=== PATIENT | female | born 1950 | race Caucasian/White ===

== ENCOUNTER 2016-10-10 16:22 | Inpatient (IN) ==
[2016-10-10] MEDS ORDERED: ZOFRAN IV PRN (17:18)
[2016-10-10] MEDS ORDERED: ULTRAM PO PRN (17:19)
[2016-10-10] MEDS ORDERED: DUONEB (A & A) ONE (17:34)
[2016-10-10] MEDS ORDERED: NS 1,000 ML IV SCH (17:51)
[2016-10-10 17:52] LABS: ALLEN TEST YES; BE 4.8 mmoll (-3.0-3.0); BLOOD TYPE ARTERIAL; DRAW SITE R RADIAL; METHB 0.2 % (0.0-1.5); O2(CT) 15.1 mL/dL (15.0-23.0); PO2(98.6) 67 mmHg (60-100); SAMPLE BLOOD; SAO2 93.8 % (95.0-100.0); THB 11.7 g/dL (11.5-17.4); pH(98.6) 7.31 (7.35-7.45)
[2016-10-10 17:55] LABS: MODALITY CANNULA; PCO2(98.6) 65 mmHg (35-45)
[2016-10-10 18:09] LABS: MANUAL DIFF NEEDED? NO
[2016-10-10 18:09] LABS: URINE CULTURE NEEDED? NO; URINE MICRO REVIEW NEEDED? NO; URINE SOURCE CLEAN CATCH
[2016-10-10 18:13] LABS: BILIRUBIN URINE NEGATIVE (NEGATIVE); BLOOD URINE NEGATIVE (NEGATIVE); COLOR STRAW; GLUCOSE URINE NEGATIVE (NEGATIVE); LEUKOCYTES URINE NEGATIVE (NEGATIVE); NITRITE URINE NEGATIVE (NEGATIVE); PROTEIN URINE NEGATIVE (NEGATIVE); SP GRAVITY URINE 1.007; TURBIDITY URINE CLEAR (CLEAR); UR EPITHELIAL CELLS <10 /HPF (<10); URINE BACTERIA NEGATIVE /HPF; URINE RBC <10 /HPF (<10); URINE WBC <10 /HPF (<10); UROBILINOGEN URINE NORMAL (NORMAL)
[2016-10-10 18:22] LABS: BASO% 0.2 % (0.0-0.8); EOS# 0.08 X1000 (0.0-0.7); EOS% 0.7 % (0.0-10.0); HEMATOCRIT 38.2 % (37.0-47.0); HEMOGLOBIN 12.5 g/dL (12.0-16.0); IMM GRAN# 0.03 X1000 (0.0-0.04); IMM GRAN% 0.3 % (0.0-0.5); LYMPH# 3.93 X1000 (1.2-3.4); LYMPH% 34.8 % (20.5-51.1); MCH 32.4 PG (27-31); MCHC 32.7 g/dL (33-37); MONO# 0.78 X1000 (0.11-0.59); MONO% 6.9 % (1.7-9.3); MPV 9.5 FL (7.4-10.4); NEUT% 57.1 % (42.2-75.2); PLT 222 X1000 (130-400); RBC 3.86 XMIL (4.2-5.4)
[2016-10-10 18:25] LABS: AGAP 10; ALBUMIN 3.5 g/dL (3.5-5.0); ALKALINE PHOSPHATASE 72 U/L (32-104); AMYLASE 41 U/L (20-200); BUN 9 mg/dL (8-22); CALCIUM 8.8 mg/dL (8.8-10.2); CHLORIDE 100 mmol/L (98-107); COSMO 278; GOT 19 U/L (10-30); GPT 6 U/L (10-36); LIPASE 19 U/L (13-60); POTASSIUM 5.4 mmol/L (3.5-5.1); SODIUM 140 mmol/L (136-145); TCO2 30 mmol/L (25-35); TOTAL BILIRUBIN 0.18 mg/dL (0.20-1.00); TOTAL PROTEIN 7.3 g/dL (6.3-8.3)
[2016-10-10] MEDS ORDERED: LASIX IV ONE (18:43)
[2016-10-10] MEDS ORDERED: LEVAQUIN 750 MG/D5W 750 MG/150 ML IVPB IV SCH (18:45)
[2016-10-10] MEDS ORDERED: NS 500 ML ONE (19:23)
[2016-10-10] MEDS ORDERED: NS 500 ML IV ONE (19:33)
[2016-10-10] MEDS: ALBUTEROL NEB INH SCH ×2 (19:50→22:39)
[2016-10-10] MEDS: MORPHINE IV PRN (20:10)
[2016-10-10] MEDS ORDERED: DEPAKOTE PO SCH (21:00)
[2016-10-10] MEDS ORDERED: ZANAFLEX PO SCH (22:21)
[2016-10-10] MEDS ORDERED: VANCOMYCIN IV PER PHARMACY MISC SCH (22:30)
[2016-10-10] MEDS ORDERED: NEO-SYNEPHRINE 50 MG in NS 250 ML IV SCH (22:30)
[2016-10-10] MEDS ORDERED: LYRICA PO SCH (22:30)
[2016-10-10] MEDS: LIBRAX PO SCH (22:58)
[2016-10-10] MEDS: DESYREL PO SCH (22:59)
[2016-10-11] MEDS ORDERED: VANCOMYCIN 1.7 GM in NS 250 ML IV ONE ×2
[2016-10-11] MEDS: TYLENOL PO PRN (00:35)
[2016-10-11] MEDS: ALBUTEROL NEB INH SCH ×6 (03:40→23:17)
--- NOTE | 2016-10-11 05:31 | EKG Report ---
Test Performed on : 10/10/2016 6:44:46 PM Test Reason : CP/Re-Ordered Blood Pressure : / mmHG Vent. Rate : 097 BPM Atrial Rate : 097 BPM P-R Int : 130 ms QRS Dur : 070 ms QT Int : 358 ms P-R-T Axes : 079 025 054 degrees QTc Int : 454 ms Normal sinus rhythm. Possible Left atrial enlargement Borderline ECG When compared with ECG of 20-JUL-2015 10:50, No significant change was found Unconfirmed Result
[2016-10-11 05:43] LABS: MANUAL DIFF NEEDED? NO
[2016-10-11 06:07] LABS: BASO% 0.1 % (0.0-0.8); EOS# 0.09 X1000 (0.0-0.7); HEMATOCRIT 32.1 % (37.0-47.0); HEMOGLOBIN 10.5 g/dL (12.0-16.0); IMM GRAN# 0.02 X1000 (0.0-0.04); IMM GRAN% 0.2 % (0.0-0.5); LYMPH# 2.85 X1000 (1.2-3.4); LYMPH% 31.3 % (20.5-51.1); MCH 32.5 PG (27-31); MCHC 32.7 g/dL (33-37); MCV 99.4 FL (81-99); MONO# 0.72 X1000 (0.11-0.59); MONO% 7.9 % (1.7-9.3); NEUT% 59.5 % (42.2-75.2); PLT 217 X1000 (130-400); RBC 3.23 XMIL (4.2-5.4)
[2016-10-11 06:18] LABS: AGAP 8; BUN 8 mg/dL (8-22); CALCIUM 8.5 mg/dL (8.8-10.2); CHLORIDE 103 mmol/L (98-107); COSMO 276; SODIUM 139 mmol/L (136-145); TCO2 28 mmol/L (25-35)
[2016-10-11 07:31] LABS: ALLEN TEST YES; BE 3.2 mmoll (-3.0-3.0); BLOOD TYPE ARTERIAL; DRAW SITE R RADIAL; O2(CT) 15.2 mL/dL (15.0-23.0); PO2(98.6) 74 mmHg (60-100); SAMPLE BLOOD; SAO2 95.5 % (95.0-100.0); THB 11.4 g/dL (11.5-17.4)
--- NOTE | 2016-10-11 07:32 | Diag Imaging Result Doc PS360 ---
CHEST-PORTABLE - 10/11/2016 INDICATION: hypoxia TECHNIQUE: COMPARISON: 11/16/2015 FINDINGS: The lungs are normally expanded and clear. Heart size and mediastinal contours are normal. No pneumothorax or pleural effusion. IMPRESSION: Negative exam. Electronically signed by Madan Lassiter 10/11/2016 7:29 AM
[2016-10-11 07:34] LABS: PCO2(98.6) 63 mmHg (35-45)
[2016-10-11] MEDS: SPIRIVA INH SCH (08:20)
[2016-10-11] MEDS: ZOLOFT PO SCH (08:23)
[2016-10-11] MEDS ORDERED: ZANAFLEX PO SCH (09:00)
--- NOTE | 2016-10-11 10:06 | HISTORY AND PHYSICAL ---
CHIEF COMPLAINT: Cough, fever, and vomiting. HISTORY OF PRESENT ILLNESS: The patient is a 66-year-old white female, who suffers from severe COPD and is on home oxygen therapy at 2 L/minute. She comes in with a 2-1/2 day history of low O2 saturations at home and some fever running around 101.3 over the last 2-3 days. She has had 2 nose bleeds and a rupture of blood vessel in her left sclera area. She has vomited 1 time last evening,. She has [facility] pain and also by Dr. Knapp, Neurologist, for some tremors. MEDICATIONS: Prior to admission are Lyrica 150 mg p.o. at bedtime, Librax 1 p.o. at bedtime, Depakote 50 mg p.o. b.i.d., Zoloft 100 mg p.o. daily, Spiriva 1 inhalation daily, Zanaflex 4 mg p.o. at bedtime, trazodone 50 mg 1-3 p.o. at bedtime. ALLERGIES: To tape, latex, rubber, codeine, and Avelox. The Avelox caused itching back in 2003. PAST MEDICAL HISTORY: 1. Obstructive sleep apnea diagnosed in 2007, followed by Dr. Reynolds. 2. Chronic obstructive pulmonary disease, followed by Dr. Reynolds. 3. Gastroparesis. 4. Diastolic dysfunction. 5. Glaucoma. 6. Hypothyroidism, diagnosed September,. 7. Genital HSV. 8. Tremor, possibly benign essential tremor versus tremor related to inhalers. PAST SURGICAL HISTORY: 1. Left foot surgery 04/19/1999. 2. Cholecystectomy. 3. Total abdominal hysterectomy. 4. Bilateral tubal ligation. 5. Left breast biopsy, January,, which was benign. 6. Right knee arthroscopy. 7. Right cataract removal in 2004. 8. Left shoulder surgery in 2004. 9. Ventral hernia repair in December,. 10. Bilateral salpingo-oophorectomy in 2007. 11. Repeat right knee arthroscopy. IMMUNIZATIONS: Pneumovax 23 given in 2007, Prevnar 13 given December,. Last influenza vaccination January,. FAMILY HISTORY: Notable for aunt with hypertension, grandmother with diabetes mellitus, mother and niece with breast cancer, and aunt with stroke. No MIs in the family. Two aunts with brain cancer. SOCIAL HISTORY: The patient lives in [place]. She is and has 1 son. Smokes 3/4 of pack a cigarettes per day and has for about 45 years. Continues to smoke some in her home now. Denies alcohol usage. She is a retired maid. REVIEW OF SYSTEMS: Negative, except as above. Has had some lower extremity edema recently, some eczema, and does have a history of mild cardiomyopathy. PHYSICAL EXAMINATION: VITAL SIGNS: The patient is seen in the office. Weight 136, blood pressure 128/74, pulse 124. O2 saturation 80% on room air. Temperature 99.3 degrees. GENERAL: Frail, elderly appearing white female, appears much older than stated age. She is walking lethargically and looking down at the floor. Appears quite ill. SKIN: There is mild of discoloration and darkness to the lower extremities from about a quarter down from the knees to the ankles. HEENT: PERRL. EOMI. Sclerae with a subconjunctival hemorrhage left medial sclerae area, mild to moderate. TMs clear. Oropharynx with slightly dry mucous membranes. Tongue in the midline. Mild redness. Edentulous. NECK: No LA, TMG, JVD or bruits. CARDIOVASCULAR: Tachycardia, regular rhythm. No distinct murmur. LUNGS: Coarse breath sounds throughout with occasional wheezes bilaterally. Decreased breath sounds at the bases noted. BACK: No costovertebral angle tenderness. ABDOMEN: Soft, nontender, nondistended. No mass or organomegaly. BREASTS/PELVIC/RECTAL: Deferred. EXTREMITIES: Trace lower extremity edema. NEUROLOGIC: Cranial nerves 2 through 12 are intact. She moves all extremities well. DTRs are equal. She does appear somewhat lethargic, but does answer questions appropriately. ASSESSMENT: 1. Hypoxia. 2. Cough. 3. Fever. 4. Chronic obstructive pulmonary disease, severe, on home oxygen. 5. Obstructive sleep apnea. 6. History of mild cardiomyopathy and diastolic dysfunction. 7. History of gastroparesis. 8. Glaucoma. 9. Hypothyroidism with possible noncompliance with medications. 10. Genital herpes simple virus. 11. Persistent tobacco abuse. 12. Vomiting. 13. Epistaxis. 14. Subconjunctival hemorrhage, left. PLAN: At this time, we will place the patient immediately over the ER and give albuterol nebulizer treatments. Place her on supplemental O2. Check chest x-ray, blood cultures x2, CMP, CBC. She is scheduled for an echocardiogram tomorrow and we will obtain that in the hospital. We will place her on clear liquids as tolerated. Insert a Fu catheter. Monitor I Os. Place her on Zofran for nausea. Continue her Zoloft, Spiriva, trazodone. Will add Librax. We will give albuterol nebulizer treatments. Consider IV antibiotics, pending lab. Check urinalysis as well. cc: Michael Calloway MD
[2016-10-11 15:03] LABS: MODALITY VENTIMASK
--- NOTE | 2016-10-11 15:50 | ECHO REPORT ---
ORDER DATE: 10/11/2016 MEASUREMENTS: Left ventricular end-diastolic diameter 3.9. End systolic diameter 2.5. Septal thickness 1.0. Left atrium 2.8. Aortic root 3.1. SUMMARY: 1. Technically difficult study due to limited acoustic window quality. Intravenous echo contrast agent Definity was utilized to enhance endocardial definition for purposes of assessment of left ventricular systolic function and regional wall motion analysis. 2. Aortic mitral and tricuspid valves are without gross structural abnormality. There is trace tricuspid regurgitation. Pulmonic valve not well demonstrated. The aortic root is normal size. 3. Normal left ventricular dimensions suggested. Estimated left ejection fraction appears to be at least 60%. No regional wall motion abnormalities are evident. Doppler suggests normal left ventricular diastolic function. Left atrium, right atrium, and right ventricle are normal size with normal right ventricular systolic function. 4. No pericardial effusion. 5. Appearance of inferior vena cava suggests normal central venous pressure. CONCLUSIONS: 1. Technically difficult study. 2. No significant valvular abnormality. 3. Normal left ventricular ejection fraction without wall motion abnormality evident. cc: MD Michael Gomez MD
--- NOTE | 2016-10-11 17:29 | PROGRESS NOTE ---
DATE: 10/11/2016 SUBJECTIVE: Patient is sitting up. She is breathing some better. Complains of some tremulousness with the albuterol. OBJECTIVE: Vital signs: Afebrile. Pulse 117. Respirations 21-24. Blood pressure 101/60 off of the Twin-Synephrine. O2 saturation on 4 L per nasal cannula 95%. CARDIOVASCULAR: Tachycardia, regular rhythm. Lungs: Coarse breath sounds with mild expiratory wheezes bilaterally. Distant breath sounds also noted. Abdomen: Nontender. Extremities: No calf tenderness, cords or edema. Neurologic: Nonfocal. Patient is alert. She is talkative. Answers questions appropriately. No focal deficits identified. LABORATORY: White count 9.11, hemoglobin 10.5, platelets 217,000. ABG on 40% via Ventimask reveals pH 7.30, pCO2 63, PO2 74, HC03 27, O2 saturation 95%. Sodium 139, potassium 4, chloride 103, CO2 28, BUN 8, creatinine 0.6, calcium 8.5, proBNP yesterday 1767. Plasma lactate this morning 0.6. Urinalysis negative. DIAGNOSTICS: Chest x-ray negative examination. EKG: Normal sinus rhythm. Left atrial enlargement. Otherwise, negative. Unchanged from previous EKGs. Echocardiogram reveals technically difficult study. Trace TR. EF 60%. No wall motion abnormalities. Normal LV diastolic function. No pericardial effusion. ASSESSMENT: 1. Chronic obstructive pulmonary disease exacerbation with hypercapnia and hypoxia. 2. Bronchitis with fever. 3. Obstructive sleep apnea. 4. History of mild cardiomyopathy and diastolic dysfunction, now resolved. 5. Remote gastroparesis. 6. Glaucoma. 7. History of hypothyroidism with possible noncompliance. 8. Genital herpes simplex virus. 9. Persistent tobacco abuse. 10. Epistaxis. 11. Left subconjunctival hemorrhage, improving. PLAN: Continue albuterol via nebulizers. Continue O2 via nasal cannula or Ventimask during the day and will give BiPAP at night. Continue IV antibiotics in the form of Levaquin and vancomycin, which was started last evening. Monitor input and output. Continue Spiriva, trazodone, Zoloft, Librax, Lyrica and will add Breo. Counseled her over several minutes in regard to smoking cessation, which is imperative. We will discontinue Fu catheter. She is off the Twin- Synephrine now and doing well and we will transfer out to a telemetry bed. Continue BiPAP at night which is very important. cc: Michael Calloway MD
[2016-10-11] MEDS: LEVAQUIN 750 MG/D5W 750 MG/150 ML IVPB IV SCH (17:37)
[2016-10-11] MEDS ORDERED: VANCOMYCIN 1.25 GM in NS 250 ML IV SCH (18:00)
[2016-10-11] MEDS: LIBRAX PO SCH (22:02)
[2016-10-11] MEDS: DESYREL PO SCH (22:02)
[2016-10-11] MEDS: MORPHINE IV PRN (22:08)
[2016-10-12] MEDS: ALBUTEROL NEB INH SCH ×6 (03:38→23:06)
[2016-10-12 05:12] LABS: BE 5.5 mmoll (-3.0-3.0); BLOOD TYPE ARTERIAL; DRAW SITE L BRACHIAL; O2(CT) 13.6 mL/dL (15.0-23.0); PO2(98.6) 57 mmHg (60-100); SAMPLE BLOOD; SAO2 93.4 % (95.0-100.0); THB 10.6 g/dL (11.5-17.4)
[2016-10-12 05:13] LABS: MODALITY CANNULA; PCO2(98.6) 68 mmHg (35-45)
[2016-10-12 07:42] LABS: MANUAL DIFF NEEDED? NO
[2016-10-12 07:47] LABS: BASO% 0.2 % (0.0-0.8); EOS# 0.05 X1000 (0.0-0.7); EOS% 0.8 % (0.0-10.0); HEMATOCRIT 31.1 % (37.0-47.0); LYMPH# 1.72 X1000 (1.2-3.4); LYMPH% 28.4 % (20.5-51.1); MCH 32.2 PG (27-31); MCHC 32.2 g/dL (33-37); MONO# 0.55 X1000 (0.11-0.59); MONO% 9.1 % (1.7-9.3); MPV 9.1 FL (7.4-10.4); NEUT% 61.5 % (42.2-75.2); PLT 198 X1000 (130-400); RBC 3.11 XMIL (4.2-5.4)
[2016-10-12 08:11] LABS: AGAP 8; BUN 7 mg/dL (8-22); CALCIUM 8.6 mg/dL (8.8-10.2); CHLORIDE 101 mmol/L (98-107); COSMO 278; POTASSIUM 4.1 mmol/L (3.5-5.1); SODIUM 140 mmol/L (136-145); TCO2 31 mmol/L (25-35)
[2016-10-12] MEDS: SPIRIVA INH SCH (08:41)
[2016-10-12] MEDS: SOLU-MEDROL IV SCH ×2 (08:54→17:04)
[2016-10-12] MEDS: ZOLOFT PO SCH (08:54)
--- NOTE | 2016-10-12 09:18 | PROGRESS NOTE ---
DATE: 10/12/2016 SUBJECTIVE: Patient did not wear her BiPAP last night. She said she put it on for 45 minutes but needed some ice, so she started eating ice and never put the BiPAP back on. OBJECTIVE: Vital Signs: Afebrile, pulse 107 respirations 20, blood pressure 105/40, O2 saturation on 4 L 91% to 95%. CV: Tachycardia, regular rhythm. Lungs: Mild expiratory wheezes bilaterally. Distant breath sounds. Abdomen: Nontender. Extremities: No calf tenderness or cord but she complains of pain along the right leg and has maybe some decreased movement in the right leg. No swelling identified. LABS: Sodium 140, potassium 4.1, chloride 101, CO2 31, BUN 7, creatinine 0.5, calcium 8.6. White count 6.06, hemoglobin 10, platelets 198,000. ABG on 36% reveals pH 7.300, pCO2 68, PO2 57, HCO3 29, O2 saturation 93.4. Blood cultures x2 remain negative. ASSESSMENT: 1. Chronic obstructive pulmonary disease exacerbation with cross gases. 2. Bronchitis. 3. Noncompliance. 4. Obstructive sleep apnea. 5. Gastroparesis. 6. Glaucoma. 7. History of hypothyroidism. 8. Genital herpes simplex virus, inactive. 9. Persistent tobacco abuse. 10. Epistaxis, resolved. 11. Left subconjunctival hemorrhage, much improved. PLAN: At this time, strongly encouraged patient to wear the BiPAP at night and leave on the nasal cannula O2 during the day. Encouraged her and counseled her in regard to smoking cessation. Continue Levaquin, vancomycin, albuterol nebs, Spiriva, Breo and will add IV steroids to try to improve her cross gases. We discussed that BiPAP will help her markedly in this endeavor. Fu catheter is out. She is off the Twin-Synephrine. She is on telemetry bed. We will continue other medicines to include her trazodone, Zoloft, Librax, Lyrica and continue supportive care. cc: Michael Calloway MD
[2016-10-12] MEDS: BREO ELLIPTA 100/25 MCG INH INH SCH (11:26)
[2016-10-12] MEDS: LEVAQUIN 750 MG/D5W 750 MG/150 ML IVPB IV SCH (17:04)
[2016-10-12] MEDS: LIBRAX PO SCH (22:17)
[2016-10-12] MEDS: DESYREL PO SCH (22:17)
[2016-10-12] MEDS: MORPHINE IV PRN (22:30)
[2016-10-13] MEDS: SOLU-MEDROL IV SCH ×3 (02:28→17:13)
[2016-10-13] MEDS: ALBUTEROL NEB INH SCH ×6 (04:30→22:53)
[2016-10-13 06:46] LABS: HEMATOCRIT 32.8 % (37.0-47.0); LYMPH# 0.56 X1000 (1.2-3.4); LYMPH% 11.9 % (20.5-51.1); MANUAL DIFF NEEDED? NO; MCH 32.8 PG (27-31); MCHC 33.5 g/dL (33-37); MCV 97.9 FL (81-99); MONO# 0.03 X1000 (0.11-0.59); MONO% 0.6 % (1.7-9.3); MPV 9.5 FL (7.4-10.4); NEUT% 87.5 % (42.2-75.2); PLT 224 X1000 (130-400); RBC 3.35 XMIL (4.2-5.4)
[2016-10-13 07:14] LABS: AGAP 8; BUN 10 mg/dL (8-22); CALCIUM 9.1 mg/dL (8.8-10.2); CHLORIDE 98 mmol/L (98-107); COSMO 276; POTASSIUM 3.6 mmol/L (3.5-5.1); SODIUM 136 mmol/L (136-145); TCO2 30 mmol/L (25-35)
[2016-10-13 07:15] LABS: FREE T4 1.46 ng/dL (0.93-1.70)
[2016-10-13] MEDS: SPIRIVA INH SCH (09:10)
[2016-10-13] MEDS: BREO ELLIPTA 100/25 MCG INH INH SCH (09:10)
[2016-10-13] MEDS: ZOLOFT PO SCH (09:52)
[2016-10-13] MEDS: SODIUM CHLORIDE 0.9% INJ SCH (13:38)
[2016-10-13] MEDS: PEPCID IV SCH ×2 (13:38→23:06)
--- NOTE | 2016-10-13 14:13 | PROGRESS NOTE ---
DATE: 10/13/2016 SUBJECTIVE: Ms. Hanson is a 66-year-old white female, admitted to the hospital with COPD exacerbation with respiratory failure, ventilatory failure with hypercarbia and hypoxemia. Patient is anxious to go home. Patient was admitted on 10/11/2016. REVIEW OF SYSTEMS: HEENT: No headache. No vision problem. Cardiopulmonary: No chest pain. Basically, coughing, shortness of breath, and wheezing. Gastrointestinal: No nausea, vomiting, or abdominal pain. Cardiovascular: No swelling of feet. Neurologic: No focal symptoms or weakness. PAST MEDICAL HISTORY, PAST SURGICAL HISTORY, MEDICINES: Reviewed as per HPI. OBJECTIVE: Temperature is 98.2 degrees, pulse is 112, blood pressure is 101/36, on 4L nasal cannula 94%. Patient is not in respiratory distress.HEENT: Atraumatic, normocephalic. Pupils equal, react to light. TMs are normal. Neck: Supple. No lymphadenopathy. Chest: Bilateral wheezing. Heart: Sounds are regular. Abdomen: Belly is soft, nontender. Good bowel sounds. No masses palpable. Cardiovascular: No peripheral edema or cyanosis. Neurologic: No obvious neurological deficits. INVESTIGATIONS: CBC: White cell count 4.7, hematocrit 32, platelets 224,000. SMA 7: Sodium 136, potassium 3.6, chloride 98, BUN 10, creatinine 0.6, glucose 185. Free T4 is normal. ABG showed pH is 7.30, pCO2 is 68, PO2 is 57. Chest x-ray on 10/11/2016: Stable chest. EKG: Normal sinus. Nothing acute for ischemia. ASSESSMENT AND PLAN: 1. A 67-year-old white female, admitted to the hospital with acute chronic obstructive pulmonary disease exacerbation with hypercarbia and sleep apnea. Continue on BiPAP machine. Continue on Breo, Levaquin, steroids. 2. Hypothyroidism, on Synthroid. 3. History of tobacco abuse. Nicotine cessation program. 4. Chronic insomnia, on trazodone. 5. Depression, on Zoloft and Depakote. Needs gastrointestinal prophylaxis with Pepcid and deep vein thrombosis prophylaxis with Lovenox. Repeat ABGs in the morning and we will follow up LEVEL OF DOCUMENTATION: Thirty-five minutes. cc: MD Michael Andersen MD
[2016-10-13] MEDS: LEVAQUIN 750 MG/D5W 750 MG/150 ML IVPB IV SCH (17:13)
[2016-10-13] MEDS: TYLENOL PO PRN (17:17)
--- NOTE | 2016-10-13 21:21 | Extremity Venous Study ---
PROCEDURE NAME: Venous U/S Right Leg - 10/12/2016 REFERRING PHYSICIAN: Dr. Calloway. INTERPRETING PHYSICIAN: Dr. George. WIRE STITCHER: Delilah. The patient has right leg pain, has hypoxia. The right lower extremity is imaged. The common femoral, superficial femoral, deep femoral, popliteal, posterior tibial, peroneal, greater saphenous are imaged. The left common femoral vein is imaged for comparison purposes. Doppler is used to evaluate the veins for spontaneity, phasicity, respiratory excursion, distal augmentation. All veins are compressible. No intraluminal clot is seen. INTERPRETATION: No evidence of deep venous thrombosis in the right lower extremity the veins identified. cc: MD Michael Cintron MD
[2016-10-13] MEDS: LIBRAX PO SCH (23:04)
[2016-10-13] MEDS: DESYREL PO SCH (23:04)
[2016-10-14] MEDS: ALBUTEROL NEB INH SCH ×6 (04:18→23:00)
[2016-10-14 05:23] LABS: BE 7.7 mmoll (-3.0-3.0); BLOOD TYPE ARTERIAL; METHB 0.6 % (0.0-1.5); O2(CT) 14.1 mL/dL (15.0-23.0); PO2(98.6) 68 mmHg (60-100); SAMPLE BLOOD; SAO2 94.3 % (95.0-100.0); THB 10.7 g/dL (11.5-17.4); pH(98.6) 7.38 (7.35-7.45)
[2016-10-14 05:25] LABS: MODALITY BI PAP
[2016-10-14 05:26] LABS: DRAW SITE R BRACHIAL; PCO2(98.6) 58 mmHg (35-45)
[2016-10-14] MEDS: SPIRIVA INH SCH (07:52)
[2016-10-14] MEDS: BREO ELLIPTA 100/25 MCG INH INH SCH (07:52)
[2016-10-14] MEDS: SOLU-MEDROL IV SCH ×4 (10:17→23:31)
[2016-10-14] MEDS: LOVENOX SUBQ SCH (10:18)
[2016-10-14] MEDS: ZOLOFT PO SCH (10:18)
[2016-10-14] MEDS: PEPCID IV SCH ×3 (10:29→23:30)
[2016-10-14] MEDS: SODIUM CHLORIDE 0.9% INJ SCH ×2 (10:29→23:30)
--- NOTE | 2016-10-14 12:33 | PROGRESS NOTE ---
DATE: 10/14/2016 SUBJECTIVE: Patient wants to go home and appears to be stable. Patient was using a BiPAP machine. REVIEW OF SYSTEMS: None reported. OBJECTIVE: Vital signs: She is afebrile. Temperature is 98 degrees, pulse is 93, respirations 17, blood pressure is 124/45. Not in respiratory distress. I's and O's: Even. HEENT: Within normal limits. Neck: Supple. No lymphadenopathy. No goiter. Chest: Bilateral air entry. No rales. No wheezing. Heart: Sounds are regular. Abdomen: Belly is soft, nontender. Good bowel sounds. No masses palpable. No peripheral edema, cyanosis. No obvious neurological deficits. INVESTIGATIONS: Venous Dopplers were negative. ABG, pH is 7.38, pCO2 58, PO2 68 on BiPAP. ASSESSMENT AND PLAN: 1. Acute respiratory failure with chronic obstructive pulmonary disease. Using BiPAP machine. Gases are better. Continue on Breo, Levaquin, IV steroids. 2. Hypothyroidism. On Synthroid. Normal thyroid function tests. 3. History of tobacco abuse. Abstain from smoking. The patient is doing very well. Continue present medical therapy. LEVEL OF DOCUMENTATION: 25 minutes. cc: MD Michael Andersen MD
[2016-10-14] MEDS: LEVAQUIN 750 MG/D5W 750 MG/150 ML IVPB IV SCH (17:59)
[2016-10-14] MEDS: DESYREL PO SCH (22:43)
[2016-10-14] MEDS: LIBRAX PO SCH (22:43)
[2016-10-14] MEDS: TYLENOL PO PRN (22:56)
[2016-10-15] MEDS: ALBUTEROL NEB INH SCH ×3 (04:00→11:11)
[2016-10-15 07:34] VITALS: BP 131/53
[2016-10-15] MEDS: BREO ELLIPTA 100/25 MCG INH INH SCH (07:46)
[2016-10-15] MEDS: SPIRIVA INH SCH (07:46)
[2016-10-15] MEDS: SOLU-MEDROL IV SCH (08:56)
[2016-10-15] MEDS: ZOLOFT PO SCH (08:56)
[2016-10-15] MEDS: LOVENOX SUBQ SCH (08:56)
--- NOTE | 2016-10-16 08:28 | DISCHARGE SUMMARY ---
ADMISSION DATE: 10/10/2016 DISCHARGE DATE: 10/15/2016 DISCHARGING DIAGNOSIS: Acute chronic obstructive pulmonary disease exacerbation dependent on home oxygen 2.5 L and CPAP machine. SECONDARY DIAGNOSES: 1. Chronic back pain. 2. Anxiety/depression. 3. Glaucoma. BRIEF HISTORY: Please see the H and P that was done by Dr. Calloway. In brief, she is a 66-year- old white female with a known history of COPD dependent on oxygen and CPAP machine. Came in with cough, shortness of breath, and wheezing. She was hypercarbic and hypoxemic. During this hospital course, the patient was given BiPAP machine, bronchodilators, IV antibiotics, IV steroids along with the inhalers. Venous Dopplers were negative for acute DVT. Echocardiography findings technical difficult study. Ejection fraction was normal and she got better. She has been walking around without any assistance. She wants to go home. LABORATORIES: CBC: White cell count 4.7, hematocrit 32, platelets 224,000. ABG pH is 7.38, pCO2 58, pO2 68 on BiPAP. SMA 7 is normal. Thyroid function tests free T4 is normal. ProBNP 1700. LFTs were normal. Urinalysis is clear. Blood cultures were negative. Chest x-ray, negative exam. Patient was discharged home in a stable condition with the following instructions. 1. Continue home oxygen 2.5 L CPAP machine. 2. Abstain from smoking. 3. Spiriva 1 capsule inhalation daily. 4. Zanaflex 4 mg daily. 5. Zoloft 100 daily. 6. Depakote 50 p.o. b.i.d. 7. Trazodone 100 mg at bedtime. 8. Librax as needed. 9. Lyrica 150 daily. 10. Breo 1 puff daily. 11. Levaquin 500 daily. 12. Medrol Dosepak. 13. Immunizations are up-to-date and includes 2 pneumococcal vaccine 2007 and 2014, and follow up with Dr. Calloway next week. cc: MD Michael Andersen MD
== END 2016-10-15 11:57 | disposition home or self-care (01) ==
LOC: ED 16:22 → ICU 20:31 → 3N 10-11 18:44
PROVIDERS: ADMIT Family Medicine; ATTEND Family Medicine